=== PATIENT | male | born 1955 | race African-American/Black ===

== ENCOUNTER 2019-08-03 09:44 | Emergency (ER) | payer OTHER ==
[~2019-08-03] VITALS: Ht 180.3 cm; Wt 113.4 kg
--- NOTE | 2019-08-03 10:12 | NUR ---
PT BIB [employer] and [employer]. Pt states having SI want to run into traffic.
[2019-08-03] MEDS ORDERED: ABILIFY (10:15)
[2019-08-03] MEDS ORDERED: WELLBUTRIN (10:15)
[2019-08-03] MEDS ORDERED: COGENTIN (10:15)
[2019-08-03] MEDS ORDERED: ALLOPURINOL (10:15)
--- NOTE | 2019-08-03 10:15 | NUR ---
LIST OF MEDS FURNISHED BY PARAMEDICS - NO DOSAGES NOTED - PT STATES HE IS NOT TAKING ANY OF HIS MEDS AND UNABLE TO RECALL THEM AT THE MOMENT.
[2019-08-03 10:17] LABS: CARBON DIOXIDE 29 mmol/L (21-32); CHLORIDE 104 mmol/L (98-107); CREATININE 1.3 mg/dL (0.6-1.3); GLUCOSE 61 mg/dL (74-106); POTASSIUM 4.2 mmol/L (3.5-5.1); UREA NITROGEN, BLOOD 17 mg/dL (7-18)
--- NOTE | 2019-08-03 10:18 | NUR ---
Notified Talent Development Coordinator for needing a 1 to 1, none available.
[2019-08-03 10:22] LABS: BASOPHILS # (AUTO) 0.1 K/uL (0.0-8.0); BASOPHILS % (AUTO) 1.4 % (0.0-2.0); EOSINOPHILS # (AUTO) 0.2 K/uL (0.0-0.7); EOSINOPHILS % (AUTO) 4.4 % (0.0-7.0); HEMATOCRIT 39.3 % (36.7-47.1); HEMOGLOBIN 13.2 g/dL (12.5-16.3); LYMPHOCYTES # (AUTO) 0.9 K/uL (20.0-40.0); LYMPHOCYTES % (AUTO) 20.6 % (20.5-51.5); MEAN CORPUSCULAR HEMOGLOBIN 28.6 uug (23.8-33.4); MEAN CORPUSCULAR HGB CONC 34 g/dL (32.5-36.3); MEAN CORPUSCULAR VOLUME 85.2 fL (73.0-96.2); MONOCYTES # (AUTO) 0.5 K/uL (2.0-10.0); NEUTROPHILS # (AUTO) 2.7 K/uL (1.8-8.9); NEUTROPHILS % (AUTO) 62.6 % (38.5-71.5); PLATELET COUNT (AUTO) 161 K/uL (152-348); RED BLOOD CELL COUNT(AUTO) 4.62 MIL/uL (4.06-5.63); WHITE BLOOD COUNT (AUTO) 4.4 K/uL (3.6-10.2)
[2019-08-03 10:23] LABS: ACETAMINOPHEN < 2.0 ug/mL (10-30); ALANINE AMINOTRANSFERASE 20 U/L (16-63); ALKALINE PHOSPHATASE 86 U/L (50-136); ASPARTATE AMINOTRANSFERASE 20 U/L (15-37); BILIRUBIN,DIRECT 0.2 mg/dL (0.0-0.2); BILIRUBIN,TOTAL 0.5 mg/dL (0.2-1.0); TOTAL PROTEIN, SERUM 8.1 g/dL (6.4-8.2)
[2019-08-03 10:27] LABS: ETHANOL < 3 MG/DL (0-0)
--- NOTE | 2019-08-03 10:30 | NUR ---
Breakfast tray provided, pt ate w/ great appitite.
--- NOTE | 2019-08-03 11:02 | NUR ---
SHARON Talavera spoke to [facility] for pt's psych eval. Pt is willing to be admted to Psych facility volunterly.
--- NOTE | 2019-08-03 11:10 | NUR ---
Spoke to Felisha workers compensation claims analyst to assisst w/ pt placement.
[2019-08-03 11:12] LABS: *AMPHETAMINE, URINE NEGATIVE (NEGATIVE); *BARBITURATE, URINE NEGATIVE (NEGATIVE); *BILIRUBIN,URIN NEGATIVE (NEGATIVE); *BLOOD, URINE NEGATIVE (NEGATIVE); *CANNABINOID, URINE NEGATIVE (NEGATIVE); *CLARITY,URINE CLEAR (CLEAR); *COCCAINE, URINE POSITIVE (NEGATIVE); *COLOR,URINE YELLOW (YELLOW); *KETONES,URINE NEGATIVE (NEGATIVE); *OPIATE, URINE NEGATIVE (NEGATIVE); *PHENCYCLIDINE SCREEN,URINE NEGATIVE (NEGATIVE); *UROBILINOGEN,URINE 0.2 E.U./dl (NORMAL); LEUKOCYTE ESTERASE ,URINE 1+ (NEGATIVE); NITRITE, URINE NEGATIVE (NEGATIVE); UGLUCOSE NEGATIVE (NEGATIVE)
[2019-08-03 11:25] LABS: BACTERIA,URINE NONE SEEN /HPF (NONE SEEN); RBC,URINE 0-3 /HPF (0-3)
[2019-08-03 11:26] LABS: SQUAMOUS EPITHELIAL CELL,UR FEW /HPF (NONE SEEN)
--- NOTE | 2019-08-03 11:28 | NUR ---
Patient is resting comfortably in bed with eyes closed, NAD noted.
--- NOTE | 2019-08-03 11:39 | NUR ---
Felisha, high school social studies teacher at the bedside.
--- NOTE | 2019-08-03 12:18 | NUR ---
Yarder Engineer Consultation: 11:25am: This SW arrived to the ED and met with patient's nurse, MEHNAZ Verma, and Dr. Foley. Patient's case was discussed. SW then met with patient, who was in his assigned ED room, asleep. Patient was easily arousable when SW called his name. Patient is cooperative, and receptive to meeting with this SW. Patient is a 63 year old -Nepalese male who was brought in by paramedics due to psychiatric complaints. Patient's presents with some mumbling while speaking, however is able to express himself appropriately and accurately. Patient is oriented. Patient states he is depressed, and "I don't like how I'm feeling". Patient reports hx of depression and being prescribed Abilify and Wellbutrin, however patient reports not having taken them for a while because "I don't like how they make me feel.....I thought I was getting better". Patient reports hearing voices that are telling him to hurt himself. SW asked patient if he had a plan of how to hurt himself, and patient stated "maybe in traffic, or going to a nearby bridge". Patient reports visual hallucinations, stating he sees angels. Patient denied tactile hallucinations. Patient reports a history of suicidal attempt over 2 years ago, pointing to a self-inflicted wound near his right shoulder. SW asked patient about use of alcohol or drugs, and patient reported cocaine. Patient's labs show patient testing positive for cocaine. Psychiatric hospitalization discussed with the patient, and patient expressed willingness to go to an inpatient psychiatric hospital for psychiatric care. SW informed the patient that SW will work on finding placement for the patient, and patient expressed agreement. DWIGHT called [facility] [phone] and spoke with Rhina. Rhina stated that they are still waiting on discharges for the day, however asked this SW to fax patient's records for review. SW faxed patient's face sheet and ED summary to Rhina and [facility] [phone]. MEHNAZ Verma and Dr. Foley informed. SW to follow-up with [facility].
--- NOTE | 2019-08-03 12:59 | NUR ---
1:1 SITTER AT BEDSIDE
--- NOTE | 2019-08-03 13:20 | NUR ---
Hospital lunch tray provided, Pt ate 100% of food. No c/o pain. 1 to 1 sitter at the bedside.
--- NOTE | 2019-08-03 13:32 | NUR ---
1:30pm: DWIGHT arrived to the ED to follow-up on patient's referral. DWIGHT informed by MEHNAZ Verma that [facility] had called back at 12:40pm and requested for the referral paperwork to be faxed over to them again. MEHNAZ Verma stated that she faxed the paperwork over. DWIGHT then called [facility] and spoke with Rhina again, asking for a status update on the patient's referral. Rhina asked this SW if a face sheet could be faxed over, since the one that was included in the initial faxes was cut off. Rhina stated they need to run patient's insurance information. DWIGHT re-faxed patient's face sheet [phone]. DWIGHT will follow-up with Rhina.
--- NOTE | 2019-08-03 13:44 | NUR ---
1:40pm: DWIGHT received a call back from Rhina at [facility] [phone], who was asking for patient's and ambulatory status. DWIGHT provided Rhina with this information (1955 and per MEHNAZ Verma patient has unsteady gait and utilizes his wheelchair for mobility). Rhina stated she will call this SW back. DWIGHT will follow-up if DWIGHT does not hear back from Rhina.
--- NOTE | 2019-08-03 14:06 | NUR ---
2:04pm: DWIGHT called [facility] to follow-up [phone] and spoke with Sravan. Sravan was endorsed this case from Rhina, who this SW was working with earlier today. Sravan stated that they are looking into the availability of a wheelchair bed, and will call this SW as soon as possible. DWIGHT agreed. DWIGHT will follow-up again if DWIGHT does not hear back from Sravan or Rhina.
--- NOTE | 2019-08-03 14:47 | NUR ---
2:40pm: DWIGHT followed up with Sravan at [facility] [phone], who stated that he had just spoken with Nurse Montaño at [facility], who had informed Sravan that she had received patient's paperwork and was working on setting up a wheelchair bed/room for the patient. Sravan stated that Nurse Samuels at [facility] had informed Sravan that they did not have any wheelchair beds available at this time. Sravan stated he will be following up with Nurse Montaño in about 15-20 minutes to obtain a status update, and would then call this SW back.
--- NOTE | 2019-08-03 15:16 | NUR ---
3:10pm: DWIGHT received a call back from Sravan at [facility]. Sravan informed this SW that patient has been accepted at [facility] for inpatient psychiatry, located at [address] [place] [address], [facility]. Sravan asked for patient's nurse to call their nurse (Ms. Montaño) to provide patient report at [phone] x [phone]. Sravan stated that the admitting psychiatrist would be Dr. Rico and the assigned patriot missile air defense artillery would be Dr. Arrington. This SW informed MEHNAZ Verma, who will call Ms. Montaño for report, and then make arrangements for transfer. Dr. Foely also informed.
--- NOTE | 2019-08-03 15:28 | NUR ---
Per licensed master social workerLizzy, pt will be transfered to [facility].
--- NOTE | 2019-08-03 15:50 | NUR ---
Called [facility] for tx. ISAURA 1800, trip #[id number].
--- NOTE | 2019-08-03 16:15 | NUR ---
Report given to Maria Elena DARBY at [facility].
--- NOTE | 2019-08-03 17:50 | NUR ---
REPORT PROVIDED FOR PAPER PRODUCTS INSPECTOR. ALL BELONGINGS SENT W/ PT, INCLUDING WHEELCHAIR. PT LEFT ER IN STABLE CONDITION. COPIES OF PT'S CHART GIVEN.
[2019-08-03 17:54] VITALS: BP 130/77
== END 2019-08-03 17:55 | disposition short-term general hospital (02) ==
LOC: ER 09:46
DX: R45.851 Suicidal ideations (principal); F32.9 Major depressive disorder, single episode, unspecified; F20.9 Schizophrenia, unspecified; F14.10 Cocaine abuse, uncomplicated; Z88.8 Allergy status to other drugs, medicaments and biological substances; Z79.899 Other long term (current) drug therapy
CPT/HCPCS: 36415; 71045; 80048; 80076; 80307; 81000; 81001; 85025; 85730; 87086; 93005; G0480 ×2; G0481; A4663